=== PATIENT | female | born 1955 | race Caucasian/White ===

== ENCOUNTER 2018-06-07 07:36 | Emergency (ER) | payer BC ==
[2018-06-07 07:55] VITALS: BP 142/72
--- NOTE | 2018-06-07 08:16 | UC ---
General HPI - HPI Summary HPI Summary: States she pulled an ingrown hair on 06/02 - she doesn't think she got it all. Then on 06/05 she noticed in the area on her neck there was some redness, swelling and a lump there. Some tenderness to palpation. No Fever. No N/V. Otherwise feels well. Has not had this happen before but has a lot of facial hair that she has to deal with. Meds: Reviewed - History of Current Complaint Chief Complaint: [place] Stated Complaint: SKIN ISSUE Time Seen by Provider: 06/07/18 08:08 Pain Intensity: 5 - Allergy/Home Medications Allergies/Adverse Reactions: Allergies Allergy/AdvReac Type Severity Reaction Status Date / Time acetaminophen Allergy Tachycardia Verified 06/07/18 07:55 [From Darvocet-N] propoxyphene Allergy Tachycardia Verified 06/07/18 07:55 [From Darvocet-N] Home Medications: Home Medications Acetaminophen/Diphenhydramine [Tylenol Pm Ex-Strength Caplet] 1 each PO [History] Atenolol 25 mg PO 06/07/18 [History] Levothyroxine TAB* [Synthroid TAB*] 125 mcg PO 0800 06/07/18 [History Confirmed 06/07/18] Multivitamin [Multivitamins] 1 cap PO 06/07/18 [History] Triamterene/HCTZ 37.5-25 MG* [Dyazide CAP*] 1 cap PO DAILY 06/07/18 [History Confirmed 06/07/18] PMH/Surg Hx/FS Hx/Imm Hx Previously Healthy: Yes Endocrine History: Hypothyroidism Cardiovascular History: Hypertension - Surgical History Surgical History: None - Social History Alcohol Use: Occasionally Substance Use Type: None Smoking Status (MU): Never Smoked Tobacco Review of Systems All Other Systems Reviewed And Are Negative: Yes Constitutional: Positive: Negative Skin: Positive: Rash Physical Exam Triage Information Reviewed: Yes Appearance: Well-Appearing Vital Signs: Initial Vital Signs Temp 98.1 F 06/07/18 07:49 Pulse 63 06/07/18 07:49 Resp 18 06/07/18 07:49 BP 142/72 06/07/18 07:49 Pulse Ox 99 06/07/18 07:49 Vital Signs Reviewed: Yes ENT: Positive: Normal ENT inspection Neck: Positive: Supple Respiratory Exam: Normal Respiratory: Positive: Lungs clear, Normal breath sounds Cardiovascular: Positive: RRR, No Murmur Skin: Positive: Other - 4 cm circular erythematous rash with focal edema and mild induration. No fluctuance. No drainage Course/Dx - Course Course Of Treatment: This is a 62 yr old with neck cellulitis Assessment Cellulitis - no area to be drained. Possible early abscess but suspect it is soft tissue edema Plan Start clindamycin as prescribed Warm compresses to area 3x/day If area becomes more red, swollen or you develop a fever or are unwell, return to urgent care or the ER - Diagnoses Provider Diagnosis: Cellulitis Discharge - Sign-Out/Discharge Documenting (check all that apply): Patient Departure All imaging exams completed and their final reports reviewed: No Studies - Discharge Plan Condition: Good Disposition: HOME Prescriptions: Clindamycin HCl 300 mg PO Q6HR #28 capsule Patient Education Materials: Cellulitis (ED) Referrals: Georgia Moreno MD [Primary Care Provider] - Additional Instructions: Start clindamycin as prescribed Warm compresses to area 3x/day If area becomes more red, swollen or you develop a fever or are unwell, return to urgent care or the ER - Billing Disposition and Condition Condition: GOOD Disposition: Home
== END 2018-06-07 08:28 | disposition home or self-care (01) ==
LOC: UCEAST 07:36
DX: L03.221 Cellulitis of neck (principal); I10 Essential (primary) hypertension; E03.9 Hypothyroidism, unspecified; Z79.899 Other long term (current) drug therapy; Z88.8 Allergy status to other drugs, medicaments and biological substances; Z88.5 Allergy status to narcotic agent
CPT/HCPCS: 99212; G0463